=== PATIENT | female | born 1950 ===

== ENCOUNTER → 2020-05-28 | Outpatient (CLI) | payer MEDICARE, OTHER | LOC: PLD 14:15 → LAB SHORT 14:15 | DX: L57.0 Actinic keratosis (principal); L81.4 Other melanin hyperpigmentation | CPT/HCPCS: 88341; 88342 ==

== ENCOUNTER → 2025-03-01 | Outpatient (CLI) | payer MEDICARE | LOC: LAB 14:49 → LAB SHORT 14:49 | DX: L30.9 Dermatitis, unspecified (principal) | CPT/HCPCS: 88312 ==